=== PATIENT | male | born 2000 | race Two or more races ===

== ENCOUNTER 2019-12-30 04:20 | Emergency (ER) | payer MEDICAID ==
[~2019-12-30] VITALS: Ht 167.6 cm; Wt 64.0 kg
[2019-12-30 06:30] VITALS: BP 120/89
[2019-12-30] MEDS ORDERED: IBUPROFEN 800MG TABLET PO ONE (06:30)
== END 2019-12-30 06:31 | disposition home or self-care (01) ==
LOC: ER 04:20
DX: K08.89 Other specified disorders of teeth and supporting structures (principal)
CPT/HCPCS: 99283